=== PATIENT | male | born 1950 | race Two or more races ===

== ENCOUNTER 2018-02-22 08:56 | Emergency (ER) | payer BC, MEDICARE ==
[2018-02-22 09:13] VITALS: BP 133/78
[2018-02-22] MEDS ORDERED: Carbamide Peroxide 6.5% OTIC* 15 ML BTL BOTH EARS ONE (10:12)
--- NOTE | 2018-02-22 10:20 | ED ---
Throat Pain/Nasal Congestion - HPI Summary HPI Summary: 67M presents with bilateral wax in ears. He states that he went swimming which normally makes it better but his ears did not unplug. He states that he sometimes needs his ears clean. No sinus congestion. no fever. no sore throat. admits to decrease in ear. no pain. no medical conditions. <Irma Moore - Last Filed: 02/22/18 11:11> <Everett Lancaster - Last Filed: 02/22/18 11:58> - History of Current Complaint Chief Complaint: UCEar Time Seen by Provider: 02/22/18 10:02 - Allergies/Home Medications Allergies/Adverse Reactions: Allergies Allergy/AdvReac Type Severity Reaction Status Date / Time No Known Allergies Allergy Verified 02/22/18 09:13 PMH/Surg Hx/FS Hx/Imm Hx Endocrine/Hematology History: Denies: Hx Anticoagulant Therapy, Hx Diabetes, Hx Thyroid Disease, Hx Anemia , Hx Unexplained Bleeding Cardiovascular History: Denies: Hx Congestive Heart Failure, Hx Deep Vein Thrombosis, Hx Hypercholesterolemia, Hx Hypertension, Hx Myocardial Infarction, Hx Pacemaker/ ICD Respiratory History: Denies: Hx Asthma, Hx Chronic Bronchitis, Hx Chronic Obstructive Pulmonary Disease (COPD), Hx Lung Cancer, Hx Pneumonia, Hx Pulmonary Embolism, Hx Seasonal Allergies, Hx Sleep Apnea GI History: Denies: Hx Crohn's Disease, Hx Diverticulosis, Hx Gall Bladder Disease, Hx Gastroesophageal Reflux Disease, Hx Gastrointestinal Bleed, Hx Hiatal Hernia, Hx Irritable Bowel, Hx Jaundice, Hx Ulcer, Hx Urosepsis History: Denies: Hx Kidney Infection, Hx Kidney Stones, Hx Renal Disease Musculoskeletal History: Reports: Hx Arthritis - knees (mild), Hx Back Problems - herniated discs HX Denies: Hx Rheumatoid Arthritis, Hx Gout, Hx Osteoporosis, Hx Scoliosis, Hx Tendonitis Neurological History: Denies: Hx Dementia, Hx Headaches, Hx Migraine, Hx Nerve Disease, Hx Seizures , Hx Spinal Cord Injury, Hx Transient Ischemic Attacks (TIA) Psychiatric History: Denies: Hx Anxiety, Hx Eating Disorder, Hx Depression, Hx Panic Disorder, Hx Post Traumatic Stress Disorder, Hx Schizophrenia, Hx Bipolar Disorder, Hx Suicide Attempt, Hx of Violent Episodes Against Others, Hx Substance Abuse - Surgical History Surgery Procedure, Year, and Place: R fifth finger repair - tonsilectomy thyroid resting lymes,macular degeneration Hx Anesthesia Reactions: No Infectious Disease History: No Infectious Disease History: Denies: Hx Hepatitis, Hx Shingles, Hx Tuberculosis, History Other Infectious Disease, Traveled Outside the [place] in Last 30 Days - Family History Known Family History: Positive: None - Social History Alcohol Use: Occasionally Alcohol Amount: beer Substance Use Type: Reports: None Smoking Status (MU): Former Smoker Have You Smoked in the Last Year: No <Irma Moore - Last Filed: 02/22/18 11:11> Review of Systems Negative: Fever Positive: Ear Ache Negative: Chest Pain Negative: Shortness Of Breath All Other Systems Reviewed And Are Negative: Yes <Irma Moore - Last Filed: 02/22/18 11:11> Physical Exam Triage Information Reviewed: Yes Vital Signs On Initial Exam: Initial Vitals Temp Pulse Resp BP Pulse Ox 98 F 53 16 133/78 100 02/22/18 09:10 02/22/18 09:10 02/22/18 09:10 02/22/18 09:10 02/22/18 09:10 Vital Signs Reviewed: Yes Appearance: Positive: Well-Appearing Skin: Positive: Warm, Dry Head/Face: Positive: Normal Head/Face Inspection Eyes: Positive: Normal, EOMI, ALVAR[place]O, Conjunctiva Clear ENT: Positive: Pharynx normal, Other - bilateral cernum ears Respiratory/Lung Sounds: Positive: Clear to Auscultation, Breath Sounds Present Cardiovascular: Positive: Normal, RRR Abdomen Description: Positive: Nontender, Soft Bowel Sounds: Positive: Present Musculoskeletal: Positive: Normal Neurological: Positive: Normal Psychiatric: Positive: Normal <Irma Moore - Last Filed: 02/22/18 11:11> Vital Signs On Initial Exam: Initial Vitals Temp Pulse Resp BP Pulse Ox 98 F 53 16 133/78 100 02/22/18 09:10 02/22/18 09:10 02/22/18 09:10 02/22/18 09:10 02/22/18 09:10 <Everett Lancaster - Last Filed: 02/22/18 11:58> Diagnostics - Vital Signs Vital Signs Temp Pulse Resp BP Pulse Ox 02/22/18 09:10 98 F 53 16 133/78 100 <Irma Moore - Last Filed: 02/22/18 11:11> - Vital Signs Vital Signs Temp Pulse Resp BP Pulse Ox 02/22/18 09:10 98 F 53 16 133/78 100 <Everett Lancaster - Last Filed: 02/22/18 11:58> EENT Course/Dx - Course Course Of Treatment: 67M presents with bilateral wax in ears. He states that he went swimming which normally makes it better but his ears did not unplug. He states that he sometimes needs his ears clean. No sinus congestion. no fever. no sore throat. admits to decrease in ear. no pain. no medical conditions. on exam has cernumen in bilateral ears. irrigated ears out. will have follow up with primary as bp in pre-htn range. patient understand and agrees with plan. - Differential Diagnoses Differential Diagnoses: Otitis Externa, Otitis Media, Other - cernumen impaction <Irma Moore - Last Filed: 02/22/18 11:11> <Everett Lancaster - Last Filed: 02/22/18 11:58> - Diagnoses Provider Diagnoses: Cerumen impaction Discharge - Sign-Out/Discharge Documenting (check all that apply): Discharge/Admit/Transfer - Billing Disposition and Condition Condition: GOOD Disposition: Home <Irma Moore - Last Filed: 02/22/18 11:11> - Billing Disposition and Condition Condition: GOOD Disposition: Home <Everett Lancaster - Last Filed: 02/22/18 11:58> - Discharge Plan Condition: Good Disposition: HOME Patient Education Materials: Cerumen Impaction (ED) Referrals: Bobo Hernandez MD [Primary Care Provider] - Additional Instructions: can use otc debrox: instill 5 to 10 drops twice daily up to 4 days when have issues with wax. Return to if develop any new or worsening symptoms Per institutional requirements, I have reviewed the chart, however, I was not consulted specifically or made aware of this patient by the above midlevel provider. I did not personally evaluate, interact with , or disposition this patient.
== END 2018-02-22 11:18 | disposition home or self-care (01) ==
LOC: UCEAST 08:56
DX: H61.23 Impacted cerumen, bilateral (principal); Z87.891 Personal history of nicotine dependence; R03.0 Elevated blood-pressure reading, without diagnosis of hypertension
CPT/HCPCS: 99213; A9270-GY; G0463

== ENCOUNTER 2018-02-25 08:46 | Emergency (ER) | payer MEDICARE ==
[2018-02-25 08:54] VITALS: BP 134/71
--- NOTE | 2018-02-25 09:29 | UC ---
Abdulkadir Munoz Julia, scribed for Shon Lou MD on 02/25/18 at 0908 . Skin Complaint HPI - HPI Summary HPI Summary: A 67 year old M presents to [facility] with a chief complaint of an erythematous tick bite to the abdomen, occurring three days ago. - History of Current Complaint Chief Complaint: UCSkin Time Seen by Provider: 02/25/18 08:56 Stated Complaint: TICK BITE Hx Obtained From: Patient Onset/Duration: Lasting Days Skin Exposure Onset/Duration: Days Ago Onset Severity: Mild Current Severity: Moderate Pain Intensity: 4 Pain Scale Used: 0-10 Numeric Location: Other - abdomen Character: Pain, Redness Associated Signs & Symptoms: Positive: Negative Related History: Possible Reaction to: Insect - Allergy/Home Medications Allergies/Adverse Reactions: Allergies Allergy/AdvReac Type Severity Reaction Status Date / Time No Known Allergies Allergy Verified 02/25/18 08:54 Review of Systems Constitutional: Negative Skin: Rash All Other Systems Reviewed And Are Negative: Yes PMH/Surg Hx/FS Hx/Imm Hx Previously Healthy: Yes Other History Of: Negative For: HIV, Hepatitis B, Hepatitis C, Anticoagulant Therapy - Surgical History Surgical History: Yes Surgery Procedure, Year, and Place: R fifth finger repair - tonsilectomy thyroid resting lymes,macular degeneration - Family History Known Family History: Positive: Hypertension - Social History Alcohol Use: Occasionally Alcohol Amount: beer Substance Use Type: None Smoking Status (MU): Former Smoker Have You Smoked in the Last Year: No When Did the Patient Quit Smoking/Using Tobacco: 1973 Physical Exam - Summary Physical Exam Summary: VITAL SIGNS: Reviewed. GENERAL: Patient is a well-developed and nourished male who is lying comfortable in the stretcher. Patient is not in any acute respiratory distress. HEAD AND FACE: Normocephalic EYES: PERRLA, EOMI x 2. EARS: Hearing grossly intact. MOUTH: Oropharynx within normal limits. NECK: Supple, trachea is midline, no adenopathy, no JVD, no carotid bruit. CHEST: Symmetric, no tenderness at palpation LUNGS: Clear to auscultation bilaterally. No wheezing or crackles. CVS: Regular rate and rhythm, S1 and S2 present, no murmurs or gallops appreciated. ABDOMEN: Soft, non-tender. Bowel sounds are normal. No abdominal abnormal pulsations. EXTREMITIES: Full ROM in all major joints, no edema, no cyanosis or clubbing. NEURO: Alert and oriented x 3. No acute neurological deficits. Speech is normal and follows commands. SKIN: Dry and warm, Erythema with central clearing of the abdomen Triage Information Reviewed: Yes Vital Signs: Initial Vital Signs Temp 98 F 02/25/18 08:51 Pulse 53 02/25/18 08:51 Resp 16 02/25/18 08:51 BP 134/71 02/25/18 08:51 Pulse Ox 100 02/25/18 08:51 Vital Signs Reviewed: Yes Course/Dx - Course Course Of Treatment: Patient reports he removed a tick a couple days ago. Today he has this erythematous rash with central clearing typical of lyme tick bite. He was given a prescription for doxycycline for 21 days. Patient recommended to follow with primary care physician next couple days. He was recommended to return to the urgent care or the emergency department if the symptoms worsen. He understands and agrees. - Diagnoses Provider Diagnoses: Tick bite. Lyme Discharge - Sign-Out/Discharge Documenting (check all that apply): Discharge/Admit/Transfer - Discharge Plan Condition: Stable Disposition: HOME Prescriptions: DOXYcycline CAP(*) [DOXYcycline 100MG CAP(*)] 100 mg PO BID #[id number] cap Patient Education Materials: Tick Bite (ED) Referrals: Bobo Hernandez MD [Primary Care Provider] - Additional Instructions: Take medications as instructed Increase your fluid intake Return to the if symptoms worsen - Billing Disposition and Condition Condition: STABLE Disposition: Home The documentation as recorded by the Abdulkadir ennis Julia accurately reflects the service I personally performed and the decisions made by , Shon Lou MD.
== END 2018-02-25 09:05 | disposition home or self-care (01) ==
LOC: UCEAST 08:46
DX: S30.861A Insect bite (nonvenomous) of abdominal wall, initial encounter (principal); Z87.891 Personal history of nicotine dependence; W57.XXXA Bitten or stung by nonvenomous insect and other nonvenomous arthropods, initial encounter; Y92.9 Unspecified place or not applicable
CPT/HCPCS: 99212; G0463